=== PATIENT | male | born 1935 | race Caucasian/White ===

== ENCOUNTER 2019-08-30 18:24 | Inpatient (IN) | payer MEDICARE, BC ==
[~2019-08-30] VITALS: Ht 177.8 cm; Wt 93.8 kg
[2019-08-30] MEDS ORDERED: heparin 10,000 units/1 ML INJ IV PRN ×2 (19:05→19:50)
[2019-08-30] MEDS ORDERED: heparin 10,000 units/1 ML INJ IV ONE ×2 (19:05→19:15)
--- NOTE | 2019-08-30 19:41 | NUR ---
PT TO BE ADMITTED. DR. MORELAND AT BEDSIDE FOR ADMISSION TO HOSPITALIST SERVICE. HEPARIN GTT ORDERED.
[2019-08-30 19:42] LABS: PARTIAL THROMBOPLASTIN TIME 43 SECONDS (22-32)
[2019-08-30] MEDS: heparin 25,000 UNIT/250ml bag 250 ML IV SCH (19:45)
[2019-08-30] MEDS ORDERED: acetaminophen 325mg tablet PO PRN ×2 (19:50)
[2019-08-30] MEDS ORDERED: HYDROcodone/acetaminophen 10/325mg tab PO PRN (19:50)
[2019-08-30] MEDS ORDERED: ondansetron/PF 4mg/2ml inj IV PRN (19:50)
[2019-08-30] MEDS ORDERED: mag hydrox/Alum hydrox/simeth 30ml oral suspension PO PRN (19:50)
[2019-08-30] MEDS ORDERED: magnesium hydroxide 30ml (MOM) UD suspension PO PRN (19:50)
[2019-08-30] MEDS ORDERED: HYDROcodone/acetaminophen 5mg/325mg tablet PO PRN ×2 (19:50→20:25)
[2019-08-30] MEDS ORDERED: heparin 25,000 UNIT/250ml bag 250 ML IV SCH (19:50)
--- NOTE | 2019-08-30 19:50 | NUR ---
2ND PAGE FOR DR. THOMAS AT 19:51
[2019-08-30] MEDS ORDERED: ISOS30TA6 PO (20:02)
[2019-08-30] MEDS ORDERED: SPIR25TA5 PO (20:02)
[2019-08-30] MEDS ORDERED: [UNRECOGNIZED DRUG - CODE] PO (20:02)
[2019-08-30] MEDS ORDERED: TIOT18CA3 INH (20:02)
[2019-08-30] MEDS ORDERED: FURO40TA4 PO (20:02)
[2019-08-30] MEDS ORDERED: IBUP-24 PO (20:02)
[2019-08-30] MEDS ORDERED: OMEP-50 PO (20:02)
[2019-08-30] MEDS ORDERED: ATOR20TA PO (20:02)
[2019-08-30] MEDS ORDERED: HYDR-4383 PO (20:02)
[2019-08-30] MEDS ORDERED: ASPI-1265 PO (20:02)
[2019-08-30] MEDS ORDERED: DOCU-21 PO (20:02)
[2019-08-30] MEDS ORDERED: MONT10TA21 PO (20:02)
[2019-08-30] MEDS ORDERED: FLUT1BLS3 IH (20:21)
[2019-08-30] MEDS ORDERED: ibuprofen 200mg tablet PO PRN (20:25)
[2019-08-30] MEDS ORDERED: docusate sod 100mg capsule PO PRN (20:25)
[2019-08-30 20:30] VITALS: BP 118/56
--- NOTE | 2019-08-30 20:30 | NUR ---
Patient in room PCU 3013. I have received report from Kirk BRADY from ED and had the opportunity to ask questions and assume patient care. Patient came up shortly to the room with all belongings by bedside. Patient is stable and comfortable, will continue to monitor.
--- NOTE | 2019-08-30 21:00 | NUR ---
Advance Directive If need, not on file, Patient gave information to network coordinator: Fl[place] [id number] [phone]
[2019-08-30] MEDS: montelukast 10mg tablet PO SCH (21:01)
[2019-08-30] MEDS: atorvastatin 20mg tablet PO SCH (21:01)
[2019-08-30 22:00] VITALS: BP 128/54
[2019-08-30] MEDS ORDERED: pneumococcal 23-VAL P-sac vacc 25 mcg/0.5ml vial IMVAC ONE (22:10)
[2019-08-31 02:00] VITALS: BP 121/48
[2019-08-31] MEDS: ipratropium/albuterol 3ml nebule IH SCH ×4 (03:26→20:03)
--- NOTE | 2019-08-31 05:30 | NUR ---
END NOC NOTE Patient slept well tonight. Therapeutic on heparin drip tonight. No pain. Barely blanchable sacrum/coccyx area, optifoam applied, passed on to day shift. Will continue to monitor.
[2019-08-31 06:00] VITALS: BP 127/53
--- NOTE | 2019-08-31 06:34 | NUR ---
Problems reprioritized. Patient report given, questions answered & plan of care reviewed with Luis Antonio BRADY.
[2019-08-31 07:22] LABS: BASOPHILS % (AUTO) 0.2 % (0-1); EOSINOPHILS % (AUTO) 0 % (0-6); HEMATOCRIT 35.6 % (42.0-52.0); LYMPHOCYTES # (AUTO) 1.2 X10'3 (1.1-4.8); LYMPHOCYTES % (AUTO) 6.1 % (21-51); MEAN CORPUSCULAR HEMOGLOBIN 31.2 PG (27.0-31.0); MEAN CORPUSCULAR HGB CONC 33.6 g/dL (33.0-36.5); MEAN CORPUSCULAR VOLUME 92.9 FL (78-98); MEAN PLATELET VOLUME 7.7 FL (7.4-10.4); MONOCYTES # (AUTO) 1.2 X10'3 (0-0.9); MONOCYTES % (AUTO) 6.3 % (2-12); NEUTROPHILS # (AUTO) 16.9 X10'3 (1.8-7.7); NEUTROPHILS % (AUTO) 87.4 % (42-75); PLATELET COUNT 270 X10'3 (140-440); RED BLOOD COUNT 3.83 X10'6 (4.70-6.10); RED CELL DISTRIBUTION WIDTH 13.6 % (11.5-14.5); WHITE BLOOD COUNT 19.4 X10'3 (4.5-11.0)
[2019-08-31] MEDS: spironolactone 25 MG tablet PO SCH (07:32)
[2019-08-31] MEDS: aspirin 81mg tab.chew PO SCH (07:32)
[2019-08-31] MEDS: isosorbide mononitrate 30mg tab.SR.24H PO SCH (07:32)
[2019-08-31] MEDS: pantoprazole 40mg Tablet.DR PO SCH (07:32)
[2019-08-31 07:37] LABS: ALBUMIN 2.2 G/DL (3.4-5.0); ANION GAP 8 (8-16); BLOOD UREA NITROGEN 21 MG/DL (7-18); BUN/CREATININE RATIO 17.4 (5.4-32.0); CALCIUM 8.1 MG/DL (8.5-10.1); CHLORIDE 107 MMOL/L (99-107); CHOLESTEROL 63 MG/DL (0-200); CREATININE 1.21 MG/DL (0.60-1.10); GLUCOSE 109 MG/DL (70-104); HDL CHOLESTEROL 21 MG/DL (35-60); LDL CHOLESTEROL 30 MG/DL (50-100); POTASSIUM 3.5 MMOL/L (3.5-5.1); SODIUM 138 MMOL/L (135-145); TOTAL CARBON DIOXIDE 22.7 MMOL/L (24-32); TRIGLYCERIDES 89 MG/DL (20-135); eGFR 57 ML/MIN
[2019-08-31] MEDS: CefTRIAXone/D5W-Rocephin 1gm 50 ML IV SCH (07:47)
[2019-08-31] MEDS ORDERED: FERROUS BIS GLYCINATE CHELATE PO SCH (08:00)
--- NOTE | 2019-08-31 08:26 | NUR ---
Notified by [facility] [facility] [employer] that pt had 4-beat run Vtach, notified . PAGER ID: [phone] MESSAGE: [id number] Kwesi Meneses. SHELBY, 4-beat run V-tach. Ruma [id number]
[2019-08-31] MEDS: azithromycin/NS 500mg/250ml 250 ML IV SCH (08:41)
[2019-08-31] MEDS: furosemide 40mg tablet PO SCH ×2 (08:42→20:03)
[2019-08-31] MEDS: budesonide 0.5mg/2ml UD nebule IH SCH ×2 (09:16→20:14)
--- NOTE | 2019-08-31 10:33 | NUR ---
PTT therapeutic no change to heparin gtt.
[2019-08-31 15:00] VITALS: BP 132/56
--- NOTE | 2019-08-31 16:53 | NUR ---
PTT therapeutic no change to heparin gtt.
[2019-08-31] MEDS: heparin 25,000 UNIT/250ml bag 250 ML IV SCH ×2 (16:59→22:44)
--- NOTE | 2019-08-31 18:10 | NUR ---
Problems reprioritized. Patient report given, questions answered & plan of care reviewed with JOSE ANTONIO Gimenez.
--- NOTE | 2019-08-31 18:20 | NUR ---
Patient in room PCU 3013. I have received report from Luis Antonio BRADY and had the opportunity to ask questions and assume patient care. Patient is resting, heparin running at 1200 units/hr. Will continue to monitor.
[2019-08-31 19:00] VITALS: BP 105/59
[2019-08-31] MEDS: atorvastatin 20mg tablet PO SCH (20:03)
[2019-08-31] MEDS: montelukast 10mg tablet PO SCH (20:03)
[2019-08-31 23:00] VITALS: BP 124/58
[2019-09-01] MEDS: ipratropium/albuterol 3ml nebule IH SCH ×4 (02:56→20:01)
[2019-09-01 03:00] VITALS: BP 145/60
[2019-09-01 05:45] LABS: BASOPHILS # (AUTO) 0.1 X10'3 (0-0.2); BASOPHILS % (AUTO) 0.4 % (0-1); EOSINOPHILS % (AUTO) 0.1 % (0-6); HEMATOCRIT 33.8 % (42.0-52.0); HEMOGLOBIN 11.4 g/dl (14.0-17.9); LYMPHOCYTES # (AUTO) 1.1 X10'3 (1.1-4.8); LYMPHOCYTES % (AUTO) 7.6 % (21-51); MEAN CORPUSCULAR HEMOGLOBIN 31.3 PG (27.0-31.0); MEAN CORPUSCULAR HGB CONC 33.7 g/dL (33.0-36.5); MEAN CORPUSCULAR VOLUME 92.9 FL (78-98); MEAN PLATELET VOLUME 8.3 FL (7.4-10.4); MONOCYTES # (AUTO) 1.1 X10'3 (0-0.9); MONOCYTES % (AUTO) 7.6 % (2-12); NEUTROPHILS # (AUTO) 12.3 X10'3 (1.8-7.7); NEUTROPHILS % (AUTO) 84.3 % (42-75); PLATELET COUNT 267 X10'3 (140-440); RED BLOOD COUNT 3.64 X10'6 (4.70-6.10); RED CELL DISTRIBUTION WIDTH 13.3 % (11.5-14.5); WHITE BLOOD COUNT 14.6 X10'3 (4.5-11.0)
[2019-09-01 06:00] VITALS: BP 126/61
[2019-09-01 06:02] LABS: ALBUMIN 2.3 G/DL (3.4-5.0); ANION GAP 5 (8-16); BLOOD UREA NITROGEN 18 MG/DL (7-18); BUN/CREATININE RATIO 14.5 (5.4-32.0); CALCIUM 8.4 MG/DL (8.5-10.1); CHLORIDE 104 MMOL/L (99-107); CREATININE 1.24 MG/DL (0.60-1.10); GLUCOSE 114 MG/DL (70-104); POTASSIUM 3.1 MMOL/L (3.5-5.1); SODIUM 137 MMOL/L (135-145); TOTAL CARBON DIOXIDE 27.8 MMOL/L (24-32); eGFR 56 ML/MIN
--- NOTE | 2019-09-01 06:39 | NUR ---
Problems reprioritized. Patient report given, questions answered & plan of care reviewed with Luis Antonio BRADY.
[2019-09-01] MEDS: heparin 25,000 UNIT/250ml bag 250 ML IV SCH (06:43)
--- NOTE | 2019-09-01 07:35 | NUR ---
PAGER ID: [phone] MESSAGE: [id number] Kwesi Meneses: Do you want me to replace K? His Lvl is at 3.1. JOSE ANTONIO Salmon Ext [phone]
[2019-09-01] MEDS: furosemide 40mg tablet PO SCH ×2 (07:40→19:15)
[2019-09-01] MEDS: aspirin 81mg tab.chew PO SCH (07:40)
[2019-09-01] MEDS: spironolactone 25 MG tablet PO SCH (07:40)
[2019-09-01] MEDS: isosorbide mononitrate 30mg tab.SR.24H PO SCH (07:40)
[2019-09-01] MEDS: pantoprazole 40mg Tablet.DR PO SCH (07:40)
[2019-09-01] MEDS: CefTRIAXone/D5W-Rocephin 1gm 50 ML IV SCH (07:41)
[2019-09-01] MEDS: azithromycin/NS 500mg/250ml 250 ML IV SCH (08:34)
[2019-09-01] MEDS: budesonide 0.5mg/2ml UD nebule IH SCH ×2 (08:51→20:02)
--- NOTE | 2019-09-01 10:48 | NUR ---
PAGER ID: [phone] MESSAGE: [id number] Kwesi Zaira: Do want you him on K and Mg replacement protocol? JOSE ANTONIO Salmon Ext [phone]
--- NOTE | 2019-09-01 10:50 | NUR ---
MESSAGE: [id number] Kwesi Mensees: Do want you him on K and Mg replacement protocol? K is 3.1 JOSE ANTONIO Salmon Ext [phone]
[2019-09-01 11:00] VITALS: BP 122/60
[2019-09-01] MEDS ORDERED: magnesium 4gm in 100ml NS 100 ML IV PRN (11:00)
[2019-09-01] MEDS ORDERED: potassium CL 10mEq/100ml bag 100 ML IV PRN (11:00)
[2019-09-01] MEDS ORDERED: potassium Cl 20 mEq SR tablet PO PRN (11:00)
[2019-09-01] MEDS ORDERED: magnesium Cl slow-release 64mg tablet PO PRN (11:00)
[2019-09-01] MEDS ORDERED: magnesium 2GM in 50ml NS 50 ML IV PRN (11:00)
--- NOTE | 2019-09-01 11:11 | NUR ---
PAGER ID: [phone] MESSAGE: MESSAGE: [id number] Kwesi Meneses: Do want you still want him on the Heparin gtt? Per Dr Farrell' note yesterday he say the gtt is not needed. JOSE ANTONIO Salmon Ext [phone]
[2019-09-01] MEDS: potassium Cl 20 mEq SR tablet PO PRN ×3 (12:09→21:05)
[2019-09-01 13:40] LABS: ABG BASE EXCESS -0.9 mmol/L (-2.0-3.0); ABG HCO3 22.2 mmol/L (22.0-26.0); ABG OXYGEN SATURATION 94.6 % (95-98); ABG PO2 (T) 69.5 mmHg (83-108); ALLEN'S TEST Positive; FCOHb 0.2 % (0.5-1.5); FMetHb 0.1 % (0.3-1.12); FO2Hb 94.3 % (94-100); RESPIRATORY RATE (OBSERVED) 18 b/min; TOTAL HEMOGLOBIN 12.2 G/dl (14.0-17.9)
[2019-09-01 15:00] VITALS: BP 113/53
--- NOTE | 2019-09-01 18:05 | NUR ---
Problems reprioritized. Patient report given, questions answered & plan of care reviewed with JOSE ANTONIO Meek.
--- NOTE | 2019-09-01 18:48 | NUR ---
Patient in room PCU 3013. I have received report from JOSE ANTONIO Salmon and had the opportunity to ask questions and assume patient care.
[2019-09-01 18:49] VITALS: BP 102/60
[2019-09-01] MEDS: methylPREDNISolone sod succ/PF 40mg inj. IV SCH (19:16)
[2019-09-01] MEDS: montelukast 10mg tablet PO SCH (21:05)
[2019-09-01] MEDS: atorvastatin 20mg tablet PO SCH (21:05)
[2019-09-01 23:00] VITALS: BP 134/72
[2019-09-02] MEDS: ipratropium/albuterol 3ml nebule IH SCH ×4 (03:01→21:02)
[2019-09-02 03:10] VITALS: BP 138/72
[2019-09-02 06:15] LABS: BASOPHILS % (AUTO) 0.3 % (0-1); EOSINOPHILS % (AUTO) 0 % (0-6); HEMATOCRIT 38.6 % (42.0-52.0); HEMOGLOBIN 13.2 g/dl (14.0-17.9); LYMPHOCYTES # (AUTO) 0.6 X10'3 (1.1-4.8); LYMPHOCYTES % (AUTO) 5.8 % (21-51); MEAN CORPUSCULAR HEMOGLOBIN 31.6 PG (27.0-31.0); MEAN CORPUSCULAR HGB CONC 34.2 g/dL (33.0-36.5); MEAN CORPUSCULAR VOLUME 92.5 FL (78-98); MEAN PLATELET VOLUME 8.6 FL (7.4-10.4); MONOCYTES # (AUTO) 0.3 X10'3 (0-0.9); MONOCYTES % (AUTO) 2.6 % (2-12); NEUTROPHILS # (AUTO) 9.5 X10'3 (1.8-7.7); NEUTROPHILS % (AUTO) 91.3 % (42-75); PLATELET COUNT 298 X10'3 (140-440); RED BLOOD COUNT 4.18 X10'6 (4.70-6.10); RED CELL DISTRIBUTION WIDTH 13.2 % (11.5-14.5); WHITE BLOOD COUNT 10.4 X10'3 (4.5-11.0)
--- NOTE | 2019-09-02 06:22 | NUR ---
Problems reprioritized. Patient report given, questions answered & plan of care reviewed with JOSE ANTONIO Echavarria.
--- NOTE | 2019-09-02 06:26 | NUR ---
Patient in room PCU 3013. I have received report from Gaviota BRADY and had the opportunity to ask questions and assume patient care. Patient asleep in bed. In no acute distress.
--- NOTE | 2019-09-02 06:26 | NUR ---
Patient in room U 3013. I have received report from JOSE ANTONIO Meek and had the opportunity to ask questions and assume patient care. Patient sleeping comfortably in bed.
[2019-09-02 06:38] LABS: ALBUMIN 2.5 G/DL (3.4-5.0); ANION GAP 9 (8-16); BLOOD UREA NITROGEN 19 MG/DL (7-18); BUN/CREATININE RATIO 15.6 (5.4-32.0); CALCIUM 8.7 MG/DL (8.5-10.1); CHLORIDE 103 MMOL/L (99-107); CREATININE 1.22 MG/DL (0.60-1.10); GLUCOSE 198 MG/DL (70-104); POTASSIUM 3.9 MMOL/L (3.5-5.1); SODIUM 136 MMOL/L (135-145); TOTAL CARBON DIOXIDE 24.4 MMOL/L (24-32); eGFR 57 ML/MIN
[2019-09-02 07:00] VITALS: BP 94/63
[2019-09-02] MEDS: CefTRIAXone/D5W-Rocephin 1gm 50 ML IV SCH (07:10)
[2019-09-02] MEDS: methylPREDNISolone sod succ/PF 40mg inj. IV SCH (07:11)
[2019-09-02] MEDS: aspirin 81mg tab.chew PO SCH (07:11)
[2019-09-02] MEDS: pantoprazole 40mg Tablet.DR PO SCH (07:11)
[2019-09-02] MEDS: furosemide 40mg tablet PO SCH ×2 (07:11→20:13)
[2019-09-02] MEDS: isosorbide mononitrate 30mg tab.SR.24H PO SCH (07:12)
[2019-09-02] MEDS: spironolactone 25 MG tablet PO SCH (07:12)
[2019-09-02] MEDS: azithromycin/NS 500mg/250ml 250 ML IV SCH (08:47)
[2019-09-02] MEDS: budesonide 0.5mg/2ml UD nebule IH SCH ×2 (09:23→21:02)
[2019-09-02 11:00] VITALS: BP 105/46
--- NOTE | 2019-09-02 11:14 | NUR ---
Dr. Silva ordered a flutter valve and incentive spirometer for the patient. Will instruct the patient on how to use these.
--- NOTE | 2019-09-02 12:01 | NUR ---
Ordered eye drop medication for patient per Dr. Silva.
[2019-09-02 15:00] VITALS: BP 109/50
[2019-09-02] MEDS: naphazoline/pheniramine eye 1 DROP BOTTLE EACHEYE SCH ×2 (15:22→20:10)
--- NOTE | 2019-09-02 18:05 | NUR ---
[facility] documentation: I have reviewed and agree with all interventions, assessments performed and documented by JOSE ANTONIO Negrete. [facility] Medication Administration: For this medication-pass time frame, all medication were reviewed, dispensed, administered and documented per hospital policy by JOSE ANTONIO Negrete.
--- NOTE | 2019-09-02 18:20 | NUR ---
Problems reprioritized. Patient report given, questions answered & plan of care reviewed with JOSE ANTONIO White.
--- NOTE | 2019-09-02 18:20 | NUR ---
Problems reprioritized. Patient report given, questions answered & plan of care reviewed with Rory BRADY. Patient stable at transfer of care.
--- NOTE | 2019-09-02 18:26 | NUR ---
Patient in room PCU 3013. I have received report from Italia RN and Daylin RN and had the opportunity to ask questions and assume patient care.
[2019-09-02 18:30] VITALS: BP 117/59
[2019-09-02] MEDS: atorvastatin 20mg tablet PO SCH (20:10)
[2019-09-02] MEDS: montelukast 10mg tablet PO SCH (20:10)
[2019-09-02 22:38] VITALS: BP 124/64
[2019-09-03] VITALS (7 sets, daily range): BP systolic 95–123; BP diastolic 48–74
[2019-09-03] MEDS: ipratropium/albuterol 3ml nebule IH SCH ×4 (03:03→20:09)
[2019-09-03 05:23] LABS: ANION GAP 8 (8-16); BASOPHILS # (AUTO) 0.1 X10'3 (0-0.2); BASOPHILS % (AUTO) 0.2 % (0-1); BLOOD UREA NITROGEN 31 MG/DL (7-18); BUN/CREATININE RATIO 20.9 (5.4-32.0); CHLORIDE 103 MMOL/L (99-107); CREATININE 1.48 MG/DL (0.60-1.10); EOSINOPHILS % (AUTO) 0 % (0-6); GLUCOSE 120 MG/DL (70-104); HEMATOCRIT 36.1 % (42.0-52.0); HEMOGLOBIN 12.2 g/dl (14.0-17.9); LYMPHOCYTES # (AUTO) 1.4 X10'3 (1.1-4.8); LYMPHOCYTES % (AUTO) 5.3 % (21-51); MEAN CORPUSCULAR HEMOGLOBIN 31.5 PG (27.0-31.0); MEAN CORPUSCULAR HGB CONC 33.8 g/dL (33.0-36.5); MEAN CORPUSCULAR VOLUME 93.1 FL (78-98); MEAN PLATELET VOLUME 8.2 FL (7.4-10.4); MONOCYTES % (AUTO) 3.8 % (2-12); NEUTROPHILS # (AUTO) 24.1 X10'3 (1.8-7.7); NEUTROPHILS % (AUTO) 90.7 % (42-75); PLATELET COUNT 336 X10'3 (140-440); POTASSIUM 4.4 MMOL/L (3.5-5.1); RED BLOOD COUNT 3.88 X10'6 (4.70-6.10); RED CELL DISTRIBUTION WIDTH 13.6 % (11.5-14.5); SODIUM 139 MMOL/L (135-145)
[2019-09-03 05:24] LABS: ALBUMIN 2.4 G/DL (3.4-5.0); CALCIUM 8.7 MG/DL (8.5-10.1); eGFR 45 ML/MIN
[2019-09-03 05:25] LABS: WHITE BLOOD COUNT 26.5 X10'3 (4.5-11.0)
--- NOTE | 2019-09-03 05:32 | NUR ---
Page Sent PAGER ID: [phone] MESSAGE: pt [id number] Kwesi Meneses 84 y/o male here for PNA and type 2 FL critical lab value WBC's 26.5 up from 10.4 yesterday AM lab currently misa gonzalez and bairon.-Prakash [phone]
--- NOTE | 2019-09-03 05:37 | NUR ---
[place] documentation: I have reviewed and agree with all interventions, assessments performed and documented by Prakash BRADY.
[2019-09-03 05:49] LABS: TOTAL CELLS COUNTED 100
[2019-09-03 05:50] LABS: PLATELET ESTIMATE NORMAL
[2019-09-03 05:51] LABS: LARGE PLATELETS FEW
--- NOTE | 2019-09-03 06:07 | NUR ---
Problems reprioritized. Patient report given, questions answered & plan of care reviewed with Italia BRADY and Penelope BRADY.
--- NOTE | 2019-09-03 06:14 | NUR ---
Patient in room PCU 3013. I have received report from JOSE ANTONIO Valadez and had the opportunity to ask questions and assume patient care. Patient asleep and in no acute distress.
--- NOTE | 2019-09-03 06:14 | NUR ---
Patient in room PCU 3013. I have received report from Rory BRADY and had the opportunity to ask questions and assume patient care. Patient asleep and in no acute distress. All immediate needs met.
[2019-09-03] MEDS: CefTRIAXone/D5W-Rocephin 1gm 50 ML IV SCH (07:36)
[2019-09-03] MEDS: naphazoline/pheniramine eye 1 DROP BOTTLE EACHEYE SCH ×2 (07:36→20:33)
[2019-09-03] MEDS: spironolactone 25 MG tablet PO SCH (07:36)
[2019-09-03] MEDS: isosorbide mononitrate 30mg tab.SR.24H PO SCH (07:36)
[2019-09-03] MEDS: aspirin 81mg tab.chew PO SCH (07:36)
[2019-09-03] MEDS: pantoprazole 40mg Tablet.DR PO SCH (07:37)
[2019-09-03] MEDS: furosemide 40mg tablet PO SCH ×2 (07:37→20:33)
[2019-09-03] MEDS: azithromycin 250mg tablet PO SCH (07:37)
[2019-09-03] MEDS: budesonide 0.5mg/2ml UD nebule IH SCH ×2 (08:09→20:09)
--- NOTE | 2019-09-03 09:49 | NUR ---
Initial: Pt admit with right lower lobe PNA. Per MD note cardiovascular status has improved secondary to PNA improved. Pt on regular diet documented with 75-100% throughout LOS meeting nutrient needs. LBM 09/02. No edema or wounds. No nutrition diagnosis at this time. Will continue to follow. Recommendations: 1) Continue regular diet 2) Bowel care PRN 3) Wt per rx Addendum: 09/03/19 at [address] Amended: Links added.
--- NOTE | 2019-09-03 18:18 | NUR ---
Problems reprioritized. Patient report given, questions answered & plan of care reviewed with JOSE ANTONIO Valadez and JOSE ANTONIO Randall. Patient stable at transfer of care.
--- NOTE | 2019-09-03 18:19 | NUR ---
Problems reprioritized. Patient report given, questions answered & plan of care reviewed with Rory/Prakash BRADY. Patient stable at transfer of care.
--- NOTE | 2019-09-03 18:25 | NUR ---
Patient in room PCU 3013. I have received report from Italia BRADY and Penelope BRADY and had the opportunity to ask questions and assume patient care.
--- NOTE | 2019-09-03 19:28 | NUR ---
Dr. Farrell cld and wanted patient to have CXR PA/LAT. I will put order in and info pts RN
[2019-09-03] MEDS: lactobacillus rhamnosus 10,000 MMU CELLS/CAPSULE PO SCH (20:33)
[2019-09-03] MEDS: atorvastatin 20mg tablet PO SCH (20:33)
[2019-09-03] MEDS: montelukast 10mg tablet PO SCH (20:33)
[2019-09-04] MEDS: ipratropium/albuterol 3ml nebule IH SCH ×2 (02:21→07:45)
[2019-09-04 02:30] VITALS: BP 109/54
[2019-09-04 05:27] LABS: BASOPHILS % (AUTO) 0.1 % (0-1); EOSINOPHILS % (AUTO) 0.3 % (0-6); HEMOGLOBIN 12.1 g/dl (14.0-17.9); LYMPHOCYTES # (AUTO) 1.5 X10'3 (1.1-4.8); LYMPHOCYTES % (AUTO) 11.4 % (21-51); MEAN CORPUSCULAR HEMOGLOBIN 31.3 PG (27.0-31.0); MEAN CORPUSCULAR HGB CONC 33.6 g/dL (33.0-36.5); MEAN CORPUSCULAR VOLUME 93.2 FL (78-98); MEAN PLATELET VOLUME 7.8 FL (7.4-10.4); MONOCYTES # (AUTO) 1.1 X10'3 (0-0.9); MONOCYTES % (AUTO) 8.8 % (2-12); NEUTROPHILS # (AUTO) 10.4 X10'3 (1.8-7.7); NEUTROPHILS % (AUTO) 79.4 % (42-75); PLATELET COUNT 337 X10'3 (140-440); RED BLOOD COUNT 3.86 X10'6 (4.70-6.10); RED CELL DISTRIBUTION WIDTH 13.6 % (11.5-14.5); WHITE BLOOD COUNT 13.1 X10'3 (4.5-11.0)
[2019-09-04 05:32] LABS: ALBUMIN 2.4 G/DL (3.4-5.0); ANION GAP 8 (8-16); BLOOD UREA NITROGEN 37 MG/DL (7-18); BUN/CREATININE RATIO 25.2 (5.4-32.0); CALCIUM 8.7 MG/DL (8.5-10.1); CHLORIDE 105 MMOL/L (99-107); CREATININE 1.47 MG/DL (0.60-1.10); GLUCOSE 107 MG/DL (70-104); POTASSIUM 3.2 MMOL/L (3.5-5.1); SODIUM 141 MMOL/L (135-145); TOTAL CARBON DIOXIDE 28.3 MMOL/L (24-32); eGFR 46 ML/MIN
[2019-09-04] MEDS: potassium Cl 20 mEq SR tablet PO PRN (05:43)
--- NOTE | 2019-09-04 06:01 | NUR ---
Problems reprioritized. Patient report given, questions answered & plan of care reviewed with Italia/Penelope RNs.
--- NOTE | 2019-09-04 06:02 | NUR ---
[place] documentation: I have reviewed and agree with all interventions, assessments performed and documented by Prakash BRADY.
--- NOTE | 2019-09-04 06:16 | NUR ---
Patient in room PCU 3013. I have received report from Rory RN and JOSE ANTONIO Randall and had the opportunity to ask questions and assume patient care. Patient stable at transfer of care.
--- NOTE | 2019-09-04 06:17 | NUR ---
Patient in room PCU 3013. I have received report from Rodrigo BRADY and had the opportunity to ask questions and assume patient care. Patient asleep in bed and in no acute distress.
[2019-09-04 07:00] VITALS: BP 127/64
[2019-09-04] MEDS: budesonide 0.5mg/2ml UD nebule IH SCH (07:45)
[2019-09-04] MEDS: CefTRIAXone/D5W-Rocephin 1gm 50 ML IV SCH (08:42)
[2019-09-04] MEDS: spironolactone 25 MG tablet PO SCH (08:42)
[2019-09-04] MEDS: aspirin 81mg tab.chew PO SCH (08:42)
[2019-09-04] MEDS: lactobacillus rhamnosus 10,000 MMU CELLS/CAPSULE PO SCH (08:42)
[2019-09-04] MEDS: pantoprazole 40mg Tablet.DR PO SCH (08:42)
[2019-09-04] MEDS: isosorbide mononitrate 30mg tab.SR.24H PO SCH (08:42)
[2019-09-04] MEDS: furosemide 40mg tablet PO SCH (08:42)
[2019-09-04] MEDS: azithromycin 250mg tablet PO SCH (08:43)
[2019-09-04] MEDS ORDERED: AMOX-422 PO (08:48)
[2019-09-04] MEDS ORDERED: PRED20TA PO (08:50)
[2019-09-04] MEDS: naphazoline/pheniramine eye 1 DROP BOTTLE EACHEYE SCH (08:54)
[2019-09-04 11:00] VITALS: BP 122/65
--- NOTE | 2019-09-04 12:28 | NUR ---
Patient is stable for discharge per MD orders. All discharge instructions reviewed with patient and all questions answered. New prescriptions were sent electronically to the [facility], and were called and confirmed that they were ready for pickup. PIV discontinued. Arm band removed. tire and lube technician discontinued. Belongings collected and sent with patient. Patient left by private vehicle and was wheeled to the lobby.
== END 2019-09-04 12:31 | disposition home or self-care (01) | DRG 871 ==
LOC: ER 18:25 → ED HOLD 19:50 → PCU 3S 20:40
PROVIDERS: ADMIT Hospitalist; ATTEND Family Medicine
PROC: 3E0234Z Introduction of Serum, Toxoid and Vaccine into Muscle, Percutaneous Approach (ICD-10-PCS; principal; 2019-08-30)
DX: A41.9 Sepsis, unspecified organism (principal); I21.A1 Myocardial infarction type 2; J18.9 Pneumonia, unspecified organism; E43 Unspecified severe protein-calorie malnutrition; I13.0 Hypertensive heart and chronic kidney disease with heart failure and stage 1 through stage 4 chronic kidney disease, or unspecified chronic kidney disease; E78.00 Pure hypercholesterolemia, unspecified; E83.51 Hypocalcemia; E78.5 Hyperlipidemia, unspecified; J43.9 Emphysema, unspecified; I50.9 Heart failure, unspecified; E87.6 Hypokalemia; I25.10 Atherosclerotic heart disease of native coronary artery without angina pectoris; N18.9 Chronic kidney disease, unspecified; R09.02 Hypoxemia; Z87.891 Personal history of nicotine dependence; I25.2 Old myocardial infarction; Z88.1 Allergy status to other antibiotic agents; Z95.1 Presence of aortocoronary bypass graft; Z23 Encounter for immunization; Z68.29 Body mass index [BMI] 29.0-29.9, adult
CPT/HCPCS: 36415; 36600; 71046; 71110; 71250; 80048; 80061; 82803; 83605; 84484; 85018; 85025; 85610; 85730; 87040; 87070; 87081; 90732; 93005; 93306; 94640; 94668; 94760; 97116; 97161; 97530; 99285; G0378; J0456; J0696; J1644; J2920; J7626